=== PATIENT | female | born 1995 | race Two or more races ===

== ENCOUNTER → 2018-02-19 | Outpatient (CLI) | payer OTHER ==
[~2018-02-19] MED LIST: DEXA4TAB PO; GADOBUTROL 7.5 MMOL/7.5 ML VIAL ONE; HYDR-3237 PO; LEVE500T53 PO; [UNRECOGNIZED DRUG - REMARK]
== END | disposition home or self-care (01) ==
LOC: CFH 08:51
PROVIDERS: ATTEND Neurological Surgery
DX: D49.6 Neoplasm of unspecified behavior of brain (principal); Z98.890 Other specified postprocedural states
CPT/HCPCS: 70553; A9585